=== PATIENT | male | born 1990 | race Caucasian/White ===

== ENCOUNTER 2019-05-01 14:56 | Emergency (ER) | payer OTHER | END 2019-05-01 16:27 | disposition home or self-care (01) | LOC: FER 14:56 ==

== ENCOUNTER 2023-02-28 21:50 | Emergency (ER) | payer BC ==
[2023-02-28 21:58] VITALS: BP 147/96; PULSE 90; RESP 18; TEMP 98.5; BMI 28.3
== END 2023-02-28 22:59 | disposition home or self-care (01) ==
LOC: FER 21:50
DX: K64.5 Perianal venous thrombosis (principal)
CPT/HCPCS: 99282-25